=== PATIENT | female | born 1935 | race Hispanic/Latino ===

== ENCOUNTER → 2017-07-01 | Day surgery (SDC) | payer MEDICARE ==
[2017-06-27 14:59] LABS: BASOPHILS # (AUTO) 0.1 (0.0-0.1); BASOPHILS % 0.6 % (0.0-1.0); EOSINOPHILS # (AUTO) 0.2 (0.0-0.4); EOSINOPHILS % 1.6 % (0.0-6.0); HEMATOCRIT 37.9 % (34.2-44.1); HEMOGLOBIN 12.8 g/dL (12.0-16.0); LYMPHOCYTES # (AUTO) 2.8 (1.0-3.2); MEAN CORPUSCULAR HEMOGLOBIN 30.8 pg (28-32); MEAN CORPUSCULAR HGB CONC 33.8 g/dL (31-35); MEAN CORPUSCULAR VOLUME 91.1 fL (81-99); MONOCYTES # (AUTO) 0.8 (0.2-0.8); MONOCYTES % 8.7 % (4.4-11.3); NEUTROPHILS # (AUTO) 5.5 (2.1-6.9); NEUTROPHILS % 58.9 % (38.7-80.0); PLATELET COUNT 220 x10e3/uL (140-360); RED BLOOD COUNT 4.16 x10e6/uL (3.6-5.1); RED CELL DISTRIBUTION WIDTH 12.8 % (11.7-14.4)
[~2017-07-01] MED LIST: ACTONEL; ACYCLOVIR200 MG PO; ALENDRONATE SOD70 MG PO; ASPIR 8181 MG PO; ASPIRIN325 MG PO; BROMFED DM COU118 ML PO; COMBIVENT RESPIMAT INH; DOXYCYCLINE HY100 MG PO; IBUPROFEN800 MG PO; INHALER; LANSOPRAZOLE PO; LANSOPRAZOLE30 MG PO; LATANOPROST2.5 ML OU; LEVOCETIRIZINE D5 MG PO; LEVOTHYROXINE50 MCG PO; LEVOTHYROXINE75 MCG PO; LIDOCAINE HCL 2% LOCAL INJ 5 ML SDV VIAL INJ ONE; LORATADINE10 M1 PO; MONTELUKAST SOD10 MG PO; NORTRIPTYLINE H10 MG PO; PANTOPRAZOLE SO40 MG PO; PRAVASTATIN SOD20 MG PO; PREVACID; PROPOFOL IV EMULSION 10 MG/ML 50 ML VIAL ONE; SERTRALINE HCL25 MG PO; SIMVASTATIN20 MG PO; SUCRALFATE1 GM PO; TIMOLOL MALEATE5 M1 OU; TRAVATAN Z5 ML OU; Z.0.ALENDRONATE SOD7 PO; Z.0.ATENOLOL25 MG PO; Z.0.CITALOPRAM HBR10 PO; Z.0.SIMVASTATIN20 MG PO; Z.1.LANSOPRAZOLE30 M PO; [UNRECOGNIZED DRUG - OTHER] PO
--- NOTE | 2017-07-01 19:39 | Operative Report ---
DATE OF PROCEDURE: July 01, 2017 REFERRING PHYSICIAN: Dr. Glenis Khanna PROCEDURE PERFORMED: Esophagogastroduodenoscopy with biopsies and esophageal dilatation. INDICATIONS FOR EGD: Heartburn, indigestion and dysphagia. MEDICATION: The patient was done under MAC. Please see anesthesiologist's note. PROCEDURE: With the patient in the left lateral decubitus position, the flexible fiberoptic Olympus gastroscope was introduced into the esophagus under direct visualization without any difficulty. There was some patchy erythema noted in the distal esophagus. A mild stricture was noted at the GE junction that was dilated to size 52-[place] Rice. The mucosa overlying the antrum revealed some scattered minute ulcers without active bleeding or stigmata of recent hemorrhage. Biopsies were obtained and sent to stain for H pylori. The pylorus was of normal contour and shape. It was intubated with ease. The scope was advanced all the way to the 2nd portion of the duodenum. The scope was then withdrawn slowly. Mucosa overlying the proximal 2nd portion, as well as the duodenal bulb appeared to be within normal limits. The scope was then withdrawn back into the stomach and retroflexed. The mucosa overlying the fundus and the cardia appeared to be within normal limits. The scope was then straightened out. The stomach was decompressed. The scope was subsequently withdrawn. The patient tolerated the procedure well. IMPRESSION 1. Distal esophagitis. 2. Esophageal stricture at gastroesophageal junction dilated to size 52-[place] Rice. 3. Gastric ulcers, antrum, minute. Biopsies obtained and sent to stain for Helicobacter pylori. PLAN: Follow up histology. Initiate Protonix 40 mg 1 p.o. q.a.m. and a.c. Job#: [id number] RI cc:GLENIS KHANNA MD
== END | disposition home or self-care (01) ==
LOC: OR 12:51
PROVIDERS: ATTEND Internal Medicine Gastroenterology
DX: K22.2 Esophageal obstruction (principal); K25.9 Gastric ulcer, unspecified as acute or chronic, without hemorrhage or perforation; K29.70 Gastritis, unspecified, without bleeding; K20.9 Esophagitis, unspecified; M19.90 Unspecified osteoarthritis, unspecified site; E03.9 Hypothyroidism, unspecified; Z01.810 Encounter for preprocedural cardiovascular examination; Z01.812 Encounter for preprocedural laboratory examination
CPT/HCPCS: 36415; 43239; 43450; 85025; 88305; 88312; 93005; J2001

== ENCOUNTER → 2017-08-30 | Outpatient (CLI) | payer MEDICARE ==
[~2017-08-30] MED LIST changes: -LIDOCAINE HCL 2% LOCAL INJ 5 ML SDV VIAL INJ ONE; -PROPOFOL IV EMULSION 10 MG/ML 50 ML VIAL ONE
--- NOTE | 2017-08-30 10:56 | Diagnostic Imaging Report ---
PROCEDURE: X-RAY CHEST, TWO VIEWS COMPARISON: [facility], DX, CHEST 2 VIEWS, 08/08/2013, 13:54. INDICATIONS: CHRONIC COUGH FINDINGS: LUNGS: Biapical pleural thickening with a focal nodularity in the right upper lobe laterally is unchanged in appearance and footwear sales representative of old granulomatous disease. Mild hyperexpansion of the lung mendez. PLEURA: No effusions or pneumothorax. HEART \T\ MEDIASTINUM: The heart is within normal size-limits. BONES \T\ SOFT TISSUES: No acute findings. CONCLUSION: No acute thoracic abnormality. James Villela D.O. Dictated by: James Villela D.O. on 08/30/2017 at 11:04 Electronically approved by: James Villela D.O. on 08/30/2017 at 11:04
== END ==
LOC: RAD 09:55
PROVIDERS: ATTEND Internal Medicine
DX: R05 Cough (principal)
CPT/HCPCS: 71020

== ENCOUNTER → 2017-10-09 | Outpatient (CLI) | payer MEDICARE ==
--- NOTE | 2017-10-09 17:55 | Diagnostic Imaging Report ---
EXAMINATION: CT of the cervical spine HISTORY: Midline neck and back pain worsening since last week, arthritis. COMPARISON: None available TECHNIQUE: Multidetector helical axial images were obtained without contrast from the foramen magnum to T1. The images were reconstructed using bone and soft tissue algorithms and were viewed in axial, sagittal and coronal planes. FINDINGS: Alignment: Normal cervical lordosis and thoracic kyphosis. Soft tissues: Pleuro- parenchymal scarring in the bilateral lung apices. Vertebrae: Nonaggressive appearing 1 cm sclerotic lesion in the anterior aspect of the T1 vertebral body, likely a bone island. Minimal chronic compression deformity of the C5 vertebral body. Prominent chronic endplate degenerative changes from C4 to C7. Otherwise normal height and density. No acute fracture, infection or neoplasm. Degenerative changes: Thoracic spine: No significant degenerative changes, no disc herniations, no spinal canal or foraminal stenosis. C2-C3: Mild facet arthrosis without stenosis. C3-C4: Small disc osteophyte, mild uncovertebral and facet arthrosis without stenosis. C4-C5: Small disc osteophyte, bilateral uncovertebral and facet arthrosis without stenosis. C5-C6: Small disc osteophyte, bilateral uncovertebral and facet arthrosis. Mild left foraminal narrowing. C6-C7: Small disc osteophyte asymmetric to the left, uncovertebral and facet arthrosis minimally on the left. Moderate left foraminal stenoses. C7-T1: Mild facet arthrosis minimally on the left without stenoses. IMPRESSION: 1. No acute displaced fractures or dislocations. 2. Minimal chronic compression deformity of the C5 vertebral body. 3. Mild degenerative foraminal stenosis on the left at C5-C6 and moderate at C6-7. 4. Multilevel spondylosis in the cervical spine without significant canal stenosis. 5. No significant degenerative changes, cannot foraminal stenosis in the thoracic spine. Signed by: Dr. Chey Brooks M.D. on 10/09/2017 5:51 PM
== END ==
LOC: CT 13:49
PROVIDERS: ATTEND Internal Medicine
DX: M54.2 Cervicalgia (principal); M54.6 Pain in thoracic spine
CPT/HCPCS: 72125; 72128

== ENCOUNTER 2018-03-29 09:58 | Emergency (ER) | payer MEDICARE ==
[~2018-03-29] VITALS: Ht 152.4 cm; Wt 59.0 kg
[2018-03-29] MEDS ORDERED: RANITIDINE HCL300 M1 PO (10:41)
[2018-03-29] MEDS ORDERED: PANTOPRAZOLE SO40 MG PO (10:41)
[2018-03-29] MEDS ORDERED: ASPIRIN 81 MG CHEW TAB PO ONE (10:45)
[2018-03-29 10:46] LABS: BASOPHILS % 0.4 % (0.0-1.0); EOSINOPHILS # (AUTO) 0.3 (0.0-0.4); EOSINOPHILS % 4.2 % (0.0-6.0); HEMATOCRIT 37.6 % (34.2-44.1); HEMOGLOBIN 12.9 g/dL (12.0-16.0); LYMPHOCYTES # (AUTO) 1.9 (1.0-3.2); MEAN CORPUSCULAR HEMOGLOBIN 30.6 pg (28-32); MEAN CORPUSCULAR HGB CONC 34.3 g/dL (31-35); MEAN CORPUSCULAR VOLUME 89.3 fL (81-99); MONOCYTES # (AUTO) 0.9 (0.2-0.8); MONOCYTES % 13.2 % (4.4-11.3); NEUTROPHILS # (AUTO) 3.8 (2.1-6.9); NEUTROPHILS % 54.8 % (38.7-80.0); PLATELET COUNT 255 x10e3/uL (140-360); RED BLOOD COUNT 4.21 x10e6/uL (3.6-5.1)
[2018-03-29] MEDS ORDERED: ONDANSETRON HCL INJ 2 MG/ML VIAL IV STA (10:54)
[2018-03-29 10:59] LABS: ALANINE AMINOTRANSFERASE 29 IU/L (0-55); ALBUMIN 3.6 g/dL (3.5-5.0); ALBUMIN/GLOBULIN RATIO 1.1 (0.8-2.0); ALKALINE PHOSPHATASE 76 IU/L (40-150); ANION GAP 13.1 mmol/L (8-16); BLOOD UREA NITROGEN 9 mg/dL (7-26); BUN/CREATININE RATIO 11 (6-25); CALCIUM 9.3 mg/dL (8.4-10.2); CARBON DIOXIDE 29 mmol/L (22-29); CHLORIDE 101 mmol/L (98-107); CREATINE KINASE 46 IU/L (29-168); EST GLOMERULAR FILTRATION RATE > 60 ML/MIN (60-); GLUCOSE 115 mg/dL (74-118); LIPASE 15 U/L (8-78); POTASSIUM 4.1 mmol/L (3.5-5.1); SODIUM 139 mmol/L (136-145)
[2018-03-29] MEDS ORDERED: DONNATAL/LIDOCAINE/MAALOX 30 ML SUSP PO ONE (11:00)
--- NOTE | 2018-03-29 11:12 | Diagnostic Imaging Report ---
PROCEDURE: A single AP view of the chest. COMPARISON: Chest radiograph 08/30/17. INDICATIONS: CHEST PAIN FINDINGS: Lines/tubes: None. Lungs: Biapical pleural thickening with a focal nodularity in the right upper lobe laterally is unchanged in appearance, consistent with prior granulomatous disease. There is no evidence of pneumonia or pulmonary edema. Pleura: There is no pleural effusion or pneumothorax. Heart and mediastinum: The cardiomediastinal silhouette is unremarkable. Bones: No acute bony abnormality. IMPRESSION: No acute cardiopulmonary disease. Dictated by: CONCETTA FRYE M.D. on 03/29/2018 at 11:18 Electronically approved by: CONCETTA FRYE M.D. on 03/29/2018 at 11:18
[2018-03-29] MEDS ORDERED: BELLADONNA ALK/PHENOBARBITAL 5 ML UDC ONE (11:20)
[2018-03-29] MEDS ORDERED: MAGNESIUM/ALUMINUM/SIMETHICONE 30 ML UDC ONE (11:20)
[2018-03-29] MEDS ORDERED: LIDOCAINE VISC 2% SOLN 15 ML UDC ONE (11:20)
[2018-03-29] MEDS ORDERED: NEXIUM40 MG PO (12:05)
[2018-03-29 12:38] LABS: CLARITY,URINE CLEAR (CLEAR); COLOR,URINE YELLOW (YELLOW)
[2018-03-29 12:39] LABS: BILIRUBIN,URINE NEGATIVE (NEGATIVE); KETONES,URINE NEGATIVE (NEGATIVE); LEUKOCYTE ESTERASE ,URINE NEGATIVE (NEGATIVE); NITRITE,URINE NEGATIVE (NEGATIVE); PROTEIN,URINE DIPSTICK NEGATIVE (NEGATIVE); URINE UROBILINOGEN 0.2 mg/dL (0.2 - 1)
[2018-03-29 12:46] LABS: BACTERIA,URINE RARE /HPF; EPITHELIAL CELLS,URINE FEW /LPF; WBC,URINE (MAN) 0-5 /HPF (0-5)
== END 2018-03-29 12:50 | disposition home or self-care (01) ==
LOC: ER 09:58
DX: R07.89 Other chest pain (principal); R11.0 Nausea; K21.0 Gastro-esophageal reflux disease with esophagitis; I10 Essential (primary) hypertension; E11.9 Type 2 diabetes mellitus without complications; E78.5 Hyperlipidemia, unspecified
CPT/HCPCS: 36415; 71045; 80053; 81001; 82550; 82553; 83690; 83880; 84484; 85025; 93005; 99284; J2405

== ENCOUNTER → 2018-05-09 | Day surgery (SDC) | payer MEDICARE ==
[2018-05-07 08:45] LABS: BASOPHILS # (AUTO) 0.1 (0.0-0.1); BASOPHILS % 0.7 % (0.0-1.0); EOSINOPHILS # (AUTO) 0.2 (0.0-0.4); EOSINOPHILS % 2.6 % (0.0-6.0); HEMATOCRIT 39.3 % (34.2-44.1); HEMOGLOBIN 13.1 g/dL (12.0-16.0); LYMPHOCYTES # (AUTO) 2.2 (1.0-3.2); LYMPHOCYTES % 28.9 % (18.0-39.1); MEAN CORPUSCULAR HEMOGLOBIN 30.6 pg (28-32); MEAN CORPUSCULAR HGB CONC 33.3 g/dL (31-35); MEAN CORPUSCULAR VOLUME 91.8 fL (81-99); MONOCYTES # (AUTO) 0.8 (0.2-0.8); MONOCYTES % 10.6 % (4.4-11.3); NEUTROPHILS # (AUTO) 4.4 (2.1-6.9); NEUTROPHILS % 56.9 % (38.7-80.0); PLATELET COUNT 222 x10e3/uL (140-360); RED BLOOD COUNT 4.28 x10e6/uL (3.6-5.1); RED CELL DISTRIBUTION WIDTH 13.6 % (11.7-14.4)
[~2018-05-09] MED LIST changes: +FENTANYL CITRATE/PF 100MCG/2 ML INJ ONE; +FLUTICASONE PRO15 GM; +HYOSCYAMINE SULFATE 0.5 MG/ML AMP ONE; +LIDOCAINE HCL 2% LOCAL INJ 5 ML SDV VIAL INJ ONE; +NEXIUM40 MG PO; +PROPOFOL IV EMULSION 10 MG/ML 50 ML VIAL ONE; +RANITIDINE HCL300 M1 PO
[2018-05-09 10:15] VITALS: BP 143/71
--- NOTE | 2018-05-09 10:33 | Operative Report ---
DATE OF PROCEDURE: May 09, 2018 REFERRING PHYSICIAN: Glenis Khanna MD PROCEDURE PERFORMED: Esophagogastroduodenoscopy with esophageal dilatation and biopsies. INDICATIONS FOR EGD: Heartburn, bloating, dysphagia. MEDICATION: Patient was done under MAC. Please see anesthesiologist's note. PROCEDURE: With the patient in the left lateral decubitus position, the flexible fiberoptic Olympus gastroscope was introduced into the esophagus under direct visualization without any difficulty. The mucosa overlying the distal esophagus revealed some patchy areas of erythema. There was a mild stricture noted at the GE junction dilated to size 52-[place] Rice. The mucosa overlying the antrum and the body revealed some diffuse erythema and low-grade edema, and biopsies were obtained and sent to stain for H. pylori. Pylorus was of normal contour and shape. It was intubated with ease, and the scope was advanced all the way to the 2nd portion of the duodenum. The scope was then withdrawn slowly. Mucosa overlying the proximal 2nd portion and the duodenal bulb appeared to be within normal limits. The scope was then withdrawn back into the stomach and retroflexed. The mucosa overlying the fundus and the cardia appeared to be within normal limits. The scope was then straightened out. It was subsequently withdrawn. Patient tolerated the procedure well. IMPRESSION 1. Distal esophagitis, mild. 2. Esophagus dilated to a size 52-Italian Rice. 3. Gastritis. PLAN: Follow up histology. Continue Protonix 40 mg 1 p.o. q.a.m. a.c. and Zantac 300 mg 1 p.o. nightly. Job#: [id number] cc:GLENIS KHANNA MD
== END | disposition home or self-care (01) ==
LOC: OR 07:21
PROVIDERS: ATTEND Internal Medicine Gastroenterology
DX: K29.50 Unspecified chronic gastritis without bleeding (principal); K22.2 Esophageal obstruction; K20.9 Esophagitis, unspecified; K21.9 Gastro-esophageal reflux disease without esophagitis; J45.909 Unspecified asthma, uncomplicated; E03.9 Hypothyroidism, unspecified; I83.90 Asymptomatic varicose veins of unspecified lower extremity; M19.90 Unspecified osteoarthritis, unspecified site; Z01.810 Encounter for preprocedural cardiovascular examination; Z01.812 Encounter for preprocedural laboratory examination; Z88.6 Allergy status to analgesic agent; Z88.8 Allergy status to other drugs, medicaments and biological substances
CPT/HCPCS: 36415; 43239; 43450; 85025; 88305; 88312; 93005; J1980; J2001

== ENCOUNTER → 2018-08-24 | Outpatient (CLI) | payer MEDICARE ==
[~2018-08-24] MED LIST changes: -FENTANYL CITRATE/PF 100MCG/2 ML INJ ONE; -HYOSCYAMINE SULFATE 0.5 MG/ML AMP ONE; -LIDOCAINE HCL 2% LOCAL INJ 5 ML SDV VIAL INJ ONE; -PROPOFOL IV EMULSION 10 MG/ML 50 ML VIAL ONE
--- NOTE | 2018-08-24 12:59 | Diagnostic Imaging Report ---
EXAMINATION: CHEST 2 VIEWS COMPARISON: CT thoracic spine 10/09/2017. FINDINGS: TUBES and LINES: None. LUNGS: Lungs are well inflated. There is no evidence of pneumonia or pulmonary edema. There is biapical pleural-parenchymal opacity, including right upper lobe subpleural opacity. PLEURA: No pleural effusion or pneumothorax. HEART AND MEDIASTINUM: The cardiomediastinal silhouette is unremarkable. Aortic atherosclerotic changes. BONES AND SOFT TISSUES: No acute osseous lesion. Soft tissues are unremarkable. UPPER ABDOMEN: No free air under the diaphragm. IMPRESSION: No acute radiographic abnormality. Biapical pleural parenchymal opacity, likely sequela of prior granulomatous disease, also seen on CT from 10/09/2017. Signed by: Dr. Braxton Aguirre MD on 08/24/2018 12:56 PM
== END ==
LOC: RAD 11:42
PROVIDERS: ATTEND Internal Medicine
DX: R06.02 Shortness of breath (principal)
CPT/HCPCS: 71046

== ENCOUNTER → 2018-11-14 | Outpatient (CLI) | payer MEDICARE ==
[~2018-11-14] MED LIST changes: +IOPAMIDOL 370 MG/ML 200 ML INFUS..BTL INJ ONE; +SODIUM CHLORIDE 0.9% 50ML 50 ML ONE
[2018-11-14 09:14] LABS: BLOOD UREA NITROGEN 9 mg/dL (7-26); BUN/CREATININE RATIO 11 (6-25); CREATININE, SERUM 0.81 mg/dL (0.57-1.11); EST GLOMERULAR FILTRATION RATE > 60 ML/MIN (60-)
--- NOTE | 2018-11-14 10:15 | Diagnostic Imaging Report ---
EXAM: CT chest and abdomen with contrast INDICATION: Abdominal and chest pain, belching COMPARISON: Chest radiograph 08/24/2018. TECHNIQUE: Chest and abdomen was scanned utilizing a multidetector helical scanner from the lung apex through the level of the iliac crests was performed after administration of IV contrast. Coronal and sagittal reformations were obtained. Routine protocol was performed. IV CONTRAST: 100 mL of Isovue 370 RADIATION DOSE: Total DLP: 356.8 mGy*cm Dose modulation, iterative reconstruction, and/or weight based adjustment of the mA/kV was utilized to reduce the radiation dose to as low as reasonably achievable. FINDINGS: CHEST: LINES/ TUBES: None. LUNGS AND AIRWAYS: There is biapical pleural-parenchymal opacity with calcifications, suggestive of prior granulomatous disease. Subpleural opacity in the right upper lobe measuring up to 1 cm on series 4, image 43 likely reflects same pleural-parenchymal opacity. Patchy dependent atelectasis. No evidence of pneumonia or pulmonary edema appear PLEURA: The pleural spaces are clear. HEART AND MEDIASTINUM: The thyroid gland is normal. No mediastinal, hilar or axillary lymphadenopathy. No cardiomegaly or pericardial effusion. Scattered coronary and aortic atherosclerotic calcifications. No evidence of central pulmonary embolism. BONES/SOFT TISSUES: Unremarkable for age. ABDOMEN: HEPATOBILIARY: There is diffuse mild fatty liver. No evidence of focal lesion. No biliary ductal dilation. GALLBLADDER: Status post cholecystectomy. SPLEEN: No splenomegaly. PANCREAS: No focal masses or ductal dilatation. ADRENALS: No adrenal nodules KIDNEYS: Kidneys enhance symmetrically. No evidence of hydronephrosis, solid mass, or stone. GI TRACT: Partially visualized. There is mild thickening of the pylorus/proximal duodenum on series 2, images 68-71. No evidence of bowel obstruction. LYMPH NODES: No lymphadenopathy. VESSELS: Unremarkable. PERITONEUM / RETROPERITONEUM: No free air or fluid. BONES AND SOFT TISSUES: Unremarkable for age. IMPRESSION: Mild thickening of the pylorus/proximal duodenum, which is indeterminate and could be inflammatory although underlying mass cannot be excluded on CT. Endoscopy is suggested for further evaluation. Diffuse mild fatty liver. No evidence of acute CT abnormality in the chest. Sequela of prior granulomatous disease in the thorax. Signed by: Dr. Braxton Aguirre MD on 11/14/2018 10:12 AM
== END ==
LOC: CT 08:25
PROVIDERS: ATTEND Internal Medicine
DX: R07.9 Chest pain, unspecified (principal); R10.9 Unspecified abdominal pain; R14.2 Eructation
CPT/HCPCS: 36415; 71260; 74160; 82565; 84520; Q9967

== ENCOUNTER → 2018-12-03 | Outpatient (CLI) | payer MEDICARE ==
[~2018-12-03] MED LIST changes: -IOPAMIDOL 370 MG/ML 200 ML INFUS..BTL INJ ONE; -SODIUM CHLORIDE 0.9% 50ML 50 ML ONE
--- NOTE | 2018-12-03 11:36 | Diagnostic Imaging Report ---
EXAM: Complete Abdominal Ultrasound INDICATION: Nonalcoholic fatty liver disease ^[id number] ^[id number] ^NON ALCOHOLIC FATTY LIVER DISEASE COMPARISON: None. TECHNIQUE: Transverse and longitudinal images of the upper abdomen were obtained. FINDINGS: Liver: Size: 15.5 cm in the right midclavicular line, normal Appearance: Increased echogenicity, smooth contour Mass: No focal masses Spleen: Size: 8.1 cm in length, normal Echogenicity: Normal Mass: No focal masses Gallbladder: Surgically absent Sonographic Roa's Sign: Negative Bile Ducts: Intrahepatic Ducts: No dilatation Extrahepatic Ducts: Common bile duct measures ... cm, no dilatation Pancreas: Visualized portions of the pancreatic head, neck and proximal body are normal. Kidneys: Length: Right 10.2 cm Left 9.5 cm Echogenicity: Normal Collecting System: No hydronephrosis Stone: None Cyst/Mass: None Vessels: Aorta: Visualized portions are normal Inferior Vena Cava: Visualized portions are normal Main Portal Vein: 0.8 cm, normal size with hepatopetal flow. Free Fluid: No ascites or pleural effusion IMPRESSION: Increased hepatic echogenicity could be due to fatty infiltration. Gallbladder surgically absent. Signed by: Dr. Dioni Quintanilla M.D. on 12/03/2018 11:33 AM
== END ==
LOC: US 09:36
PROVIDERS: ATTEND Internal Medicine Gastroenterology
DX: K76.0 Fatty (change of) liver, not elsewhere classified (principal)
CPT/HCPCS: 76700

== ENCOUNTER → 2019-01-02 | Outpatient (CLI) | payer MEDICARE ==
--- NOTE | 2019-01-02 12:36 | Diagnostic Imaging Report ---
EXAM: Bone mineral density study 01/02/2019 11:06 AM INDICATION: ^OSTEOPOROSIS COMPARISON: Previous DEXA none. Baseline DEXA none FINDINGS: Evaluation of the left hip and lumbar spine was performed. The study is technically adequate. The patient's fracture risk is compared to an age-matched control. The patient denies prior surgery/fracture of the spine, hips or forearm. LEFT HIP * Femoral neck bone mineral density: 0.696 gm/cm2, T-score is -1.5, Z-score is 0.9. * Total bone mineral density: 0.759 gm/cm2, T-score is -1.5, Z-score is 0.7. LUMBAR SPINE * Total bone mineral density: 0.814 gm/cm2, T-score is -2.1, Z-score is 0.7. IMPRESSION: 1. LEFT HIP: Bone mineralization by WHO Classification is osteopenia, the fracture risk is moderate. 2. LUMBAR SPINE: Bone mineralization by WHO Classification is osteopenia, the fracture risk is moderate. <T score: NL = -1 or higher Osteopenia = -1 to -2.5 Osteoporosis = -2.5 or lower Z score: < - 2 concerning for path> Signed by: Dr. Tommy Clement M.D. on 01/02/2019 12:33 PM
== END ==
LOC: DX 10:55
PROVIDERS: ATTEND Internal Medicine
DX: M81.0 Age-related osteoporosis without current pathological fracture (principal)
CPT/HCPCS: 77080

== ENCOUNTER 2020-09-24 11:12 | Emergency (ER) | payer MEDICARE ==
[~2020-09-24] VITALS: Ht 157.5 cm; Wt 59.0 kg
== END 2020-09-24 13:28 | disposition home or self-care (01) ==
LOC: ER 12:11
DX: U07.1 COVID-19 (principal)
CPT/HCPCS: 99283; U0002

== ENCOUNTER → 2021-07-01 | Outpatient (CLI) | payer MEDICARE | LOC: CT 15:25 | PROVIDERS: ATTEND Internal Medicine | DX: M54.6 Pain in thoracic spine (principal) | CPT/HCPCS: 71250 ==

== ENCOUNTER → 2021-07-19 | Day surgery (SDC) | payer MEDICARE ==
[2021-07-16 09:25] LABS: BASOPHILS % 0.6 % (0.0-1.0); EOSINOPHILS # (AUTO) 0.1 (0.0-0.4); HEMATOCRIT 37.4 % (34.2-44.1); HEMOGLOBIN 12.1 g/dL (12.0-16.0); LYMPHOCYTES # (AUTO) 1.7 (1.0-3.2); LYMPHOCYTES % 26.5 % (18.0-39.1); MEAN CORPUSCULAR HGB CONC 32.4 g/dL (31-35); MEAN CORPUSCULAR VOLUME 92.6 fL (81-99); MONOCYTES # (AUTO) 0.6 (0.2-0.8); MONOCYTES % 9.5 % (4.4-11.3); NEUTROPHILS % 61.1 % (38.7-80.0); PLATELET COUNT 167 x10e3/uL (140-360); RED BLOOD COUNT 4.04 x10e6/uL (3.6-5.1); RED CELL DISTRIBUTION WIDTH 12.7 % (11.7-14.4)
[~2021-07-19] MED LIST changes: +ALBUTEROL0.63 MG/3 NEB; +GLIPIZIDE5 MG PO; +HYOSCYAMINE SULFATE 0.5 MG/ML INJ ONE; +LOSARTAN POTASS25 MG PO; +OMEPRAZOLE40 MG PO; +PAIN RELIEF650 MG; +PROPOFOL IV EMULSION 10 MG/ML 20 ML VIAL ONE
[2021-07-19 10:00] VITALS: BP 117/63
== END | disposition home or self-care (01) ==
LOC: OR 07:02
PROVIDERS: ATTEND Internal Medicine Gastroenterology
DX: K29.50 Unspecified chronic gastritis without bleeding (principal); K44.9 Diaphragmatic hernia without obstruction or gangrene; K31.89 Other diseases of stomach and duodenum; K21.9 Gastro-esophageal reflux disease without esophagitis; K76.0 Fatty (change of) liver, not elsewhere classified; R00.1 Bradycardia, unspecified; H40.9 Unspecified glaucoma; J45.909 Unspecified asthma, uncomplicated; I10 Essential (primary) hypertension; E11.9 Type 2 diabetes mellitus without complications; E78.00 Pure hypercholesterolemia, unspecified; E03.9 Hypothyroidism, unspecified; Z88.6 Allergy status to analgesic agent; Z88.8 Allergy status to other drugs, medicaments and biological substances; Z01.810 Encounter for preprocedural cardiovascular examination; Z01.812 Encounter for preprocedural laboratory examination; Z20.822 Contact with and (suspected) exposure to COVID-19; Z79.84 Long term (current) use of oral hypoglycemic drugs; Z79.82 Long term (current) use of aspirin; Z79.899 Other long term (current) drug therapy; Z86.73 Personal history of transient ischemic attack (TIA), and cerebral infarction without residual deficits
CPT/HCPCS: 36415 ×2; 43239; 82948; 85025; 88305; 88312; 93005; C9113; J1980; J2704; U0002

== ENCOUNTER 2021-08-23 14:38 | Emergency (ER) | payer MEDICARE ==
[~2021-08-23] VITALS: Ht 157.5 cm; Wt 59.0 kg
[~2021-08-23 14:38] MED LIST changes: -HYOSCYAMINE SULFATE 0.5 MG/ML INJ ONE; -PROPOFOL IV EMULSION 10 MG/ML 20 ML VIAL ONE
[2021-08-23 15:49] LABS: BASOPHILS % 0.4 % (0.0-1.0); EOSINOPHILS % 0.4 % (0.0-6.0); HEMATOCRIT 40.6 % (34.2-44.1); HEMOGLOBIN 13.7 g/dL (12.0-16.0); LYMPHOCYTES # (AUTO) 2.4 (1.0-3.2); LYMPHOCYTES % 29.2 % (18.0-39.1); MEAN CORPUSCULAR HEMOGLOBIN 30.9 pg (28-32); MEAN CORPUSCULAR HGB CONC 33.7 g/dL (31-35); MEAN CORPUSCULAR VOLUME 91.6 fL (81-99); MONOCYTES # (AUTO) 0.6 (0.2-0.8); MONOCYTES % 7.1 % (4.4-11.3); NEUTROPHILS # (AUTO) 5.2 (2.1-6.9); NEUTROPHILS % 62.5 % (38.7-80.0); PLATELET COUNT 240 x10e3/uL (140-360); RED BLOOD COUNT 4.43 x10e6/uL (3.6-5.1); RED CELL DISTRIBUTION WIDTH 13.7 % (11.7-14.4)
[2021-08-23 15:58] LABS: CLARITY,URINE SL CLOUDY (CLEAR); COLOR,URINE YELLOW (YELLOW)
[2021-08-23 15:59] LABS: KETONES,URINE 1+ (NEGATIVE); LEUKOCYTE ESTERASE ,URINE TRACE (NEGATIVE); NITRITE,URINE NEGATIVE (NEGATIVE); PROTEIN,URINE DIPSTICK NEGATIVE (NEGATIVE); URINE UROBILINOGEN 0.2 mg/dL (0.2 - 1)
[2021-08-23 16:06] LABS: BACTERIA,URINE MANY /HPF; RBC,URINE 0-5 /HPF (0-5); WBC,URINE (MAN) 0-5 /HPF (0-5)
[2021-08-23 16:08] LABS: ALBUMIN 4.1 g/dL (3.5-5.0); ALBUMIN/GLOBULIN RATIO 1.4 (0.8-2.0); ANION GAP 17.7 mmol/L (8-16); CALCIUM 9.4 mg/dL (8.4-10.2); CREATININE, SERUM 0.75 mg/dL (0.57-1.11); POTASSIUM 3.7 mmol/L (3.5-5.1)
[2021-08-23] MEDS ORDERED: SODIUM CHLORIDE 0.9% 50ML 50 ML ONE (16:53)
[2021-08-23] MEDS ORDERED: IOPAMIDOL 370 MG/ML 200 ML INFUS..BTL INJ ONE (16:53)
[2021-08-23] MEDS ORDERED: CEFTRIAXONE 1 GM in SODIUM CHLORIDE 0.9% 50ML 50 ML IV ONE (17:00)
[2021-08-23] MEDS ORDERED: CEFTRIAXONE 1 GM VIAL IV ONE (17:00)
[2021-08-23] MEDS ORDERED: ULTRAM 50MG50 MG PO (18:59)
[2021-08-23] MEDS ORDERED: CEPHALEXIN500 MG PO (19:05)
== END 2021-08-23 19:17 | disposition home or self-care (01) ==
LOC: ER 15:05
DX: R10.12 Left upper quadrant pain (principal); K86.89 Other specified diseases of pancreas; K40.90 Unilateral inguinal hernia, without obstruction or gangrene, not specified as recurrent; K76.9 Liver disease, unspecified; M54.9 Dorsalgia, unspecified; J45.909 Unspecified asthma, uncomplicated; E03.9 Hypothyroidism, unspecified; H40.9 Unspecified glaucoma; E78.5 Hyperlipidemia, unspecified; Z88.6 Allergy status to analgesic agent; Z88.8 Allergy status to other drugs, medicaments and biological substances; Z79.899 Other long term (current) drug therapy; Z87.440 Personal history of urinary (tract) infections
CPT/HCPCS: 36415; 71045; 74177; 80053; 81001; 83690; 84484; 85025; 86301; 99284; J0696; Q9967